=== PATIENT | male | born 1980 | race Caucasian/White ===

== ENCOUNTER 2022-04-05 21:00 | Emergency (ER) | payer SELFPAY ==
[2022-04-05 21:30] VITALS: BP 144/79; PULSE 94; RESP 16; BMI 29.0
== END 2022-04-05 22:00 | disposition left against medical advice (07) ==
LOC: FER 21:00
DX: F10.929 Alcohol use, unspecified with intoxication, unspecified (principal)
CPT/HCPCS: 99282-25